=== PATIENT | male | born 1960 | race American Indian/Alaskan Native ===

== ENCOUNTER 2017-07-30 10:50 | Day surgery (SDC) | payer MEDICAID ==
--- NOTE | 2017-07-30 12:59 | Anesthesia Consultation ---
Anesthesia Consult and Med Hx Date of service: 07/30/17 - Airway Anesthetic Teeth Evaluation: Poor ROM Head & Neck: Adequate Mental/Hyoid Distance: Adequate Mallampati Class: Class II Intubation Access Assessment: Probably Good - Pulmonary Exam CTA: Yes - Cardiac Exam Cardiac Exam: RRR - Pre-Operative Health Status ASA Pre-Surgery Classification: ASA2 Proposed Anesthetic Plan: MAC - Pre-Anesthesia Comment Pre-Anesthesia Comments: Multiple missing teeth, none loose - Pulmonary Hx Smoking: Yes (a few cigarettes a day.)
--- NOTE | 2017-07-30 13:00 | Anesthesia Day of Surgery ---
Anesthesia Day of Surgery - Day of Surgery Patient Examined: Yes Patient H&P Reviewed: Yes Patient is NPO: Yes
--- NOTE | 2017-07-30 13:36 | Operative Report ---
Operative Report Operative Report: Date of procedure: 07/30/2017 Procedure: Colonoscopy with hot biopsy polypectomy and polyp ablation. Attending physician: German Cuenca MD Tobacco Warehouse Manager: German Cuenca MD Indication: Patient is a 57-year-old male who presents for colorectal cancer screening. A colonoscopy serves to evaluate patient for colorectal cancer screening. Consent: Informed consent was obtained after advising the patient and family regarding nature of this procedure, its indications, potential benefits as well as possible complications including but not limited to bleeding perforation and adverse reaction to medication, infection as well as other cardiopulmonary complications. An informed written and verbal consent was then obtained after due opportunity was provided for questions and answers. Monitoring: Patient was monitored continuously with pulse oximetry and electrocardiographic recordings as well as blood pressure recordings. Vital signs remained stable throughout this procedure with no untoward events. Preoperative assessment: Patient was assessed immediately prior to this procedure for capacity to tolerate monitored anesthesia care and moderate sedation as well as general anesthesia. Patient's ASA classification is 2, Mallampati class is 2, Hyomental distance is 3. Instrument: [employer] videocolonoscope. [employer]on video endoscope. Medications: Propofol given intravenously in divided doses. For details please refer to anesthesia records. Description of procedure: Patient was placed in the left lateral decubitus position after achieving sedation, a digital rectal examination was performed following which the colonoscope was introduced into the anal verge and advanced to the cecum which was identified by the cecal valve, the appendiceal orifice, as well as by the cecal strap and direct transillumination. The colonoscope was subsequently withdrawn with careful inspection of all mucosal surfaces. Patient tolerated this procedure well and was subsequently taken to the recovery room. The following findings were noted. Findings: Patient had mild diverticulosis involving the all segments of the colon. Patient had multiple diminutive polyps in the sigmoid colon which were ablated there were also multiple diminutive polyps in the rectum which were ablated. There were additional polyps in the rectum which were removed by hot biopsy polypectomy. There were also sigmoid colon polyps all removed by hot biopsy polypectomy altogether in each segment were more than 10 diminutive polyps. There was substantial retained stool in all segments of the colon this made the examination technically difficult and the preparation altogether in the cecum and ascending colon and transverse colon was suboptimal. In the ascending colon, patient had a sessile polyp measuring approximately 6 mm was removed by hot biopsy polypectomy and retrieved the cecum otherwise did not reveal any abnormalities also the transverse colon did not reveal any other additional abnormalities except for the stool and the diverticula. The rest of the segments of the colon did not reveal any other additional abnormalities except for areas of retained stool. On the retroflex view at the anal verge, patient had internal hemorrhoids. Patient tolerated the procedure well with no untoward events. Impression: Multiple diminutive polyps in the rectum status post hot biopsy polypectomy and ablation. Multiple diminutive polyps in the sigmoid colon status post cold biopsy polypectomy and ablation. Ascending colon polyp status post hot biopsy polypectomy. Substantial retained stool. Diverticular disease of the colon. Internal hemorrhoids Plan: Follow pathology report High-fiber diet. PRN stool softeners Repeat colonoscopy in 1 year because of the presence of multiple colon polyps and poor colonoscopic preparation.
[2017-07-30] MEDS ORDERED: DIPRIVAN 10 MG/ML IV ONE ×2 (15:14)
[2017-07-30] MEDS ORDERED: WATER FOR IRRIG STERILE IR ONE ×2 (15:26→16:13)
[2017-07-30] MEDS ORDERED: NACL 0.9% 1000 ML 1,000 ML IV SCH (16:00)
[2017-07-30] MEDS ORDERED: WATER FOR IRRIG STERILE ONE (16:12)
--- NOTE | 2017-07-30 16:53 | Discharge Summary ---
Short Stay Discharge Plan Activity: advance as tolerated Weight Bearing Status: Weight Bear as Tolerated Diet: regular Additional Instructions: Post Sedation D/C Instructions When you return home you may resume your regular diet unless otherwise directed. -Go directly home from the hospital and rest quietly. You may resume normal activities tomorrow. -Do NOT drive, return to work, operate any machinery or make any important personal or business decisions today. -Do NOT drink any alcohol or take nerve or sleeping drugs. They add to the effects of the medicine still present in your body. Forms: Post Sedation D/C Instructions
[2017-07-30 17:19] VITALS: BP 113/86
== END 2017-07-30 10:51 | disposition home or self-care (01) ==
LOC: GIO 10:50
PROVIDERS: ATTEND Internal Medicine Gastroenterology
DX: Z12.11 Encounter for screening for malignant neoplasm of colon (principal); K63.5 Polyp of colon; K62.1 Rectal polyp; K57.30 Diverticulosis of large intestine without perforation or abscess without bleeding; K64.8 Other hemorrhoids; F17.210 Nicotine dependence, cigarettes, uncomplicated; F12.90 Cannabis use, unspecified, uncomplicated; Z91.09 Other allergy status, other than to drugs and biological substances; Z72.89 Other problems related to lifestyle
CPT/HCPCS: 45384; 45388; 88305; J2704; J7030